=== PATIENT | male | born 1990 | race Two or more races ===

== ENCOUNTER 2016-08-23 02:33 | Emergency (ER) | payer MEDICAID, OTHER ==
[~2016-08-23] VITALS: Ht 177.8 cm; Wt 72.6 kg
[~2016-08-23 02:33] MED LIST: ARIP5TAB4 PO; GABA800T PO; SERT50TA PO
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
[2016-08-23 03:03] LABS: ABG BASE EXCESS 1.1 mmol/L; ABG OXYGEN SATURATION 87.6 % (92.0-98.5); ABG PCO2 42.2 mmHg (35.0-45.0); ABG PH 7.408 (7.350-7.450); COHb 2.7 % (0.5-1.5); MetHb 0.8 % (0.0-1.5); O2Hb 84.5 % (94.0-97.0); SITE, ABG A-Line; VENT MODE, BG room air
[2016-08-23 03:04] LABS: BASOPHILS # (AUTO) 0.1 /CMM (0.0-0.2); EOSINOPHILS # (AUTO) 0.3 /CMM (0.0-0.7); EOSINOPHILS % (AUTO) 4.8 % (0.0-6.0); HEMATOCRIT 43 % (39-51); HEMOGLOBIN 14.6 g/dL (13.5-17.5); LYMPHOCYTES # (AUTO) 2.6 /CMM (0.8-4.8); LYMPHOCYTES % (AUTO) 41.3 % (20.0-44.0); MEAN CORPUSCULAR HEMOGLOBIN 32 PG (26.0-33.0); MEAN CORPUSCULAR HGB CONC 35 g/dl (31.0-36.0); MEAN CORPUSCULAR VOLUME 92 fL (80-96); MONOCYTES # (AUTO) 0.8 /CMM (0.1-1.30); MONOCYTES % (AUTO) 11.9 % (2.0-12.0); NEUTROPHILS # (AUTO) 2.6 /CMM (1.8-8.9); PLATELET COUNT (AUTO) 256 /CMM (150-450); RDW COEFFICIENT OF VARIATION 12.4 (11.5-15.0); RED BLOOD CELL COUNT(AUTO) 4.61 MIL/uL (4.5-6.0); WHITE BLOOD COUNT (AUTO) 6.3 K/uL (4.3-11.0)
--- NOTE | 2016-08-23 03:10 | NUR ---
PT LEFT FOR CT VIA GURNEY.
[2016-08-23 03:16] LABS: CALCIUM, SERUM 9.2 mg/dL (8.5-10.1); CARBON DIOXIDE 27 mmol/L (21-32); CHLORIDE 108 mmol/L (98-107); CREATININE 0.7 mg/dL (0.6-1.3); GLUCOSE 97 mg/dL (74-106); POTASSIUM 3.2 mmol/L (3.5-5.1); SODIUM SERUM 142 mmol/L (136-145); UREA NITROGEN, BLOOD 13 mg/dL (7-18)
[2016-08-23 03:18] LABS: INR 1.01 (0.87-1.13); PROTHROMBIN TIME 10.8 SECS (9.5-12.7)
[2016-08-23 03:21] LABS: CREATINE KINASE, TOTAL 117 U/L (39-308)
[2016-08-23 03:22] LABS: ALANINE AMINOTRANSFERASE 27 U/L (12-78); ALCOHOL, BLOOD < 3 mg/dL (0-0); ALKALINE PHOSPHATASE 44 U/L (46-116); ASPARTATE AMINOTRANSFERASE 10 U/L (15-37); BILIRUBIN,DIRECT 0.2 mg/dL (0.0-0.2); BILIRUBIN,TOTAL 1.9 mg/dL (0.2-1.0); TOTAL PROTEIN, SERUM 6.7 g/dL (6.4-8.2)
[2016-08-23 03:24] LABS: TROPONIN I < 0.017 ng/mL (0.00-0.056)
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
--- NOTE | 2016-08-23 04:00 | NUR ---
DEATH CLAIM CLERK IS AT THE BEDSIDE. AMMONIA LEVEL DRAWN.
--- NOTE | 2016-08-23 04:39 | NUR ---
PT APPEARS TO BE SLEEPING COMFORTABLY WITH NO S/S OF PAIN OR DISTRESS.
[2016-08-23] MEDS ORDERED: FLAGYL/NS RTU 500 MG/100 ML PIGGYBACK IV ONE (05:00)
[2016-08-23] MEDS ORDERED: LACTULOSE 10 G/15 ML UDC (PYXIS) PO ONE (05:00)
[2016-08-23] MEDS ORDERED: NEOMYCIN SULFATE (500MG) 500 MG TABLET PO ONE (05:00)
[2016-08-23] MEDS ORDERED: METRONIDAZOLE 500MG/ NS 100ML 100 ML IV ONE (05:02)
[2016-08-23] MEDS ORDERED: IV SET PRIMARY PUMP SET 1 EA INFUS.SET MC ONE ×2 (05:02→06:00)
[2016-08-23 05:03] LABS: ACETAMINOPHEN 0 ug/ml (10-30)
[2016-08-23 05:04] LABS: VALPROIC ACID < 3 ug/mL (50-100)
[2016-08-23 05:06] LABS: APPEARANCE,URINE CLEAR (CLEAR); BILIRUBIN,URINE NEGATIVE (NEGATIVE); BLOOD, URINE 2+ Ery/uL (NEGATIVE); COLOR,URINE YELLOW (YELLOW); KETONES,URINE NEGATIVE (NEGATIVE); LEUKOCYTE ESTERASE ,URINE NEGATIVE (NEGATIVE); NITRITE, URINE NEGATIVE (NEGATIVE); PROTEIN,URINE TRACE mg/dl (NEGATIVE); UGLUCOSE NEGATIVE (NEGATIVE); UROBILINOGEN,URINE 0.2 EU/dL (0.2)
[2016-08-23 05:13] LABS: BACTERIA,URINE None seen /HPF (None Seen); MUCUS,URINE Rare /LPF (None Seen); SQUAMOUS EPITHELIAL CELL,UR Few /HPF (None Seen)
[2016-08-23] MEDS ORDERED: CT SWABBABLE VALVE TRANS SET 1 EA INFUS.SET MC ONE (05:13)
[2016-08-23] MEDS ORDERED: IOHEXOL-300 100 ML VIAL IV ONE (05:13)
[2016-08-23] MEDS ORDERED: IV NS 0.9% 250 ML IV ONE (05:13)
--- NOTE | 2016-08-23 05:15 | NUR ---
PT LEFT FOR CT VIA GURNEY.
--- NOTE | 2016-08-23 05:32 | NUR ---
PT RETURNED FROM CT.
--- NOTE | 2016-08-23 05:36 | NUR ---
PT NOT ABLE TO GIVE PO MEDS AT THIS TIME. PT IS TOO SOMULENT. DR. MEDRANO IS AWARE.
[2016-08-23] MEDS ORDERED: IV D5/0.45 NACL 1,000 ML IV ONE ×2 (05:59→06:00)
--- NOTE | 2016-08-23 06:23 | NUR ---
PT APPEARS TO BE SLEEPING SOUNDLY WITH NO S/S OF PAIN OR DISTRESS NOTED.
--- NOTE | 2016-08-23 07:01 | NUR ---
PT IS SLEEPING SOUNDLY. NO S/S OF PAIN OR DISTRESS NOTED. VSS.
--- NOTE | 2016-08-23 08:00 | NUR ---
PT GOT DRESSED AND WILL CALL SOMEONE TO PICK HIM UP.
--- NOTE | 2016-08-23 08:01 | NUR ---
IV removed. Catheter intact and site benign. Pressure and 4x4 applied to site. No bleeding noted.
--- NOTE | 2016-08-23 08:05 | NUR ---
PT AMBUALATED TO THE BATHROOM WITH A STEADY GAIT. VSS.
--- NOTE | 2016-08-23 08:05 | NUR ---
Patient discharged to home in stable condition. Written and verbal after care instructions given. Patient verbalizes understanding of instruction. PT TO CALL FAMILY/FRIEND TO PICK HIM UP.
[2016-08-23 08:07] VITALS: BP 111/69
[2016-08-23] MEDS ORDERED: ZINC SULFATE 220 MG CAPSULE PO SCH (09:00)
== END 2016-08-23 08:05 | disposition home or self-care (01) ==
LOC: ER 02:35
DX: R41.82 Altered mental status, unspecified (principal); F12.10 Cannabis abuse, uncomplicated; F15.10 Other stimulant abuse, uncomplicated; F41.9 Anxiety disorder, unspecified; R79.1 Abnormal coagulation profile; R79.89 Other specified abnormal findings of blood chemistry; Z88.2 Allergy status to sulfonamides; V49.9XXA Car occupant (driver) (passenger) injured in unspecified traffic accident, initial encounter; Y93.89 Activity, other specified; Y92.410 Unspecified street and highway as the place of occurrence of the external cause; Y99.9 Unspecified external cause status
CPT/HCPCS: 36415; 36600; 70450; 71010; 72125; 72170; 74160; 80048; 80076; 80164; 80305; 81001; 82140; 82550; 82962; 84484; 85025; 85730; 87081; 93005; 96365; 99285; A4606; G0480 ×2; J3490 ×2; J7050; L0172; Q9967; Z7610; 81000-TC

== ENCOUNTER 2016-09-21 11:56 | Inpatient (IN) | payer MEDICAID, OTHER ==
[~2016-09-21] VITALS: Ht 177.8 cm; Wt 70.3 kg
--- NOTE | 2016-09-21 02:00 | NUR ---
MS2/RN VANCOMYCIN NOT ADMINISTERED AT THIS TIME IT IS TOO CLOSE FROM LAST DOSE. WILL ADMIN AT 0500
--- NOTE | 2016-09-21 11:58 | NUR ---
PT TO ER BED 09. C/O LLE PAIN AND NUMBNESS R/T GROIN AREA SINCE WAKING UP THIS MORNING. PT ADMITS TO SHOOTING HEROIN BUT DENIES DOIN IT TO HIS LE. STATES UNABLE TO MOVE AFFECTED EXTREMITY. GOWNED AND PLACED ON MONITOR. AWAITING MD BAEZ.
--- NOTE | 2016-09-21 12:26 | NUR ---
LEILA SCRUBBER OPERATOR AT BEDSIDE FOR EVAL.
[2016-09-21] MEDS ORDERED: IV NS 0.9% 1,000 ML BAG IV ONE ×2 (12:30→14:30)
--- NOTE | 2016-09-21 12:35 | NUR ---
IV LINE STARTED. BLOOD DRAWN AND SENT TO LAB.
--- NOTE | 2016-09-21 12:37 | NUR ---
CALLED NURSING SUP. FOR MS BED
[2016-09-21] MEDS ORDERED: IV NS 0.9% 1,000 ML ONE (12:38)
[2016-09-21] MEDS ORDERED: IV SET PRIMARY PUMP SET 1 EA INFUS.SET MC ONE ×2 (12:38→19:24)
[2016-09-21 12:42] LABS: BASOPHILS # (AUTO) 0.1 /CMM (0.0-0.2); BASOPHILS % (AUTO) 0.9 % (0.0-2.0); EOSINOPHILS % (AUTO) 0.2 % (0.0-6.0); HEMATOCRIT 46 % (39-51); HEMOGLOBIN 15.3 g/dL (13.5-17.5); LYMPHOCYTES % (AUTO) 7.9 % (20.0-44.0); MEAN CORPUSCULAR HEMOGLOBIN 32 PG (26.0-33.0); MEAN CORPUSCULAR HGB CONC 34 g/dl (31.0-36.0); MEAN CORPUSCULAR VOLUME 95 fL (80-96); MONOCYTES # (AUTO) 1.6 /CMM (0.1-1.30); NEUTROPHILS # (AUTO) 10.4 /CMM (1.8-8.9); PLATELET COUNT (AUTO) 321 /CMM (150-450); RED BLOOD CELL COUNT(AUTO) 4.81 MIL/uL (4.5-6.0); WHITE BLOOD COUNT (AUTO) 13.1 K/uL (4.3-11.0)
[2016-09-21 12:53] LABS: CALCIUM, SERUM 8.9 mg/dL (8.5-10.1); CARBON DIOXIDE 29 mmol/L (21-32); CHLORIDE 102 mmol/L (98-107); CREATININE 0.9 mg/dL (0.6-1.3); GLUCOSE 138 mg/dL (74-106); POTASSIUM 3.6 mmol/L (3.5-5.1); SODIUM SERUM 139 mmol/L (136-145); UREA NITROGEN, BLOOD 7 mg/dL (7-18)
[2016-09-21 12:56] LABS: INR 0.99 (0.87-1.13); PROTHROMBIN TIME 10.3 SECS (9.5-12.7)
[2016-09-21 13:01] LABS: TROPONIN I < 0.017 ng/mL (0.00-0.056)
[2016-09-21 13:05] LABS: ALANINE AMINOTRANSFERASE 124 U/L (12-78); ALBUMIN 3.8 g/dL (3.4-5.0); ALKALINE PHOSPHATASE 46 U/L (46-116); ASPARTATE AMINOTRANSFERASE 319 U/L (15-37); B-TYPE NATRIURETIC PEPTIDE 63 PG/ML (0-125); BILIRUBIN,DIRECT 0.2 mg/dL (0.0-0.2); BILIRUBIN,TOTAL 0.8 mg/dL (0.2-1.0); TOTAL PROTEIN, SERUM 6.9 g/dL (6.4-8.2)
[2016-09-21] MEDS ORDERED: IOHEXOL-300 100 ML VIAL IV ONE (13:29)
[2016-09-21] MEDS ORDERED: IV NS 0.9% 250 ML IV ONE (13:29)
[2016-09-21] MEDS ORDERED: CT SWABBABLE VALVE TRANS SET 1 EA INFUS.SET MC ONE (13:29)
--- NOTE | 2016-09-21 13:35 | NUR ---
PT TO RADIOLOGY FOR ABDOMINAL/AORTA CT SCAN VIA RPORUM
[2016-09-21 14:17] LABS: APPEARANCE,URINE Clear (CLEAR); BILIRUBIN,URINE Negative (NEGATIVE); BLOOD, URINE Large Ery/uL (NEGATIVE); COLOR,URINE Dark Yellow (YELLOW); KETONES,URINE Negative (NEGATIVE); LEUKOCYTE ESTERASE ,URINE Negative (NEGATIVE); NITRITE, URINE Negative (NEGATIVE); PROTEIN,URINE 100 mg/dl (NEGATIVE); UGLUCOSE Negative (NEGATIVE); UROBILINOGEN,URINE 0.2 EU/dL (0.2)
[2016-09-21 14:24] LABS: BACTERIA,URINE None seen /HPF (None Seen); RBC,URINE 0-2 /HPF (0-2); SQUAMOUS EPITHELIAL CELL,UR Few /HPF (None Seen); URINE AMORPHOUS URATE Moderate /HPF (None Seen); WBC,URINE 0-3 /HPF (0-3)
[2016-09-21 14:34] LABS: CREATINE KINASE MB 174.9 ng/mL (0-3.6)
--- NOTE | 2016-09-21 14:34 | NUR ---
[facility] PAGED, DR. MORTENSEN CAR INSPECTION AND REPAIR MANAGER
[2016-09-21] MEDS ORDERED: IV SET PRIMARY 1 EA INFUS.SET MC ONE (15:31)
[2016-09-21] MEDS ORDERED: IV NS 0.9% 2,000 ML ONE (15:31)
[2016-09-21] MEDS ORDERED: IV NS 0.9% 1,000 ML IV PRN (16:41)
[2016-09-21] MEDS ORDERED: MAGNESIUM HYDROXIDE 30 ML UDC PO PRN (17:00)
[2016-09-21] MEDS ORDERED: MAG HYDROX/AL HYDROX/SIMETH 30 ML UDC PO PRN (17:00)
[2016-09-21] MEDS ORDERED: ONDANSETRON HCL/PF 4 MG/2 ML VIAL IVP PRN (17:00)
[2016-09-21] MEDS: ARIPIPRAZOLE 5 MG TABLET PO SCH (17:00)
[2016-09-21] MEDS: SERTRALINE HCL 50 MG TABLET PO SCH (17:00)
[2016-09-21] MEDS ORDERED: MORPHINE SULFATE INJ 2 MG/ML DISP.SYRIN IV PRN (17:00)
[2016-09-21] MEDS ORDERED: Z GUARD REMEDY 2 OZ OINT TP PRN (17:00)
[2016-09-21] MEDS ORDERED: ACETAMINOPHEN 325 MG TABLET PO PRN (17:00)
[2016-09-21] MEDS ORDERED: ENOXAPARIN SODIUM 40 MG/0.4 ML DISP.SYRIN SQ SCH (17:00)
[2016-09-21] MEDS ORDERED: TOPI-37 PO (17:04)
[2016-09-21] MEDS ORDERED: FOLI1TAB16 PO (17:04)
[2016-09-21] MEDS ORDERED: PANT20TA2 PO (17:04)
[2016-09-21] MEDS ORDERED: GABA-534 PO (17:04)
[2016-09-21] MEDS ORDERED: FEE PK DOSING 1 MIN EA MC ONE (17:11)
--- NOTE | 2016-09-21 17:20 | NUR ---
REPORT GIVEN TO LYNDA. PT AWAITING TRANSFER TO FLOOR.
[2016-09-21 17:59] VITALS: BP 150/83
--- NOTE | 2016-09-21 18:30 | NUR ---
RN ADMITTING NOTES RECEIVED REPORT FROM ER. PATIENT ARRIVED TO UNIT AT 1815. NO SIGNS AND SYMPTOMS OF DISTRESS. VITAL SIGNS ARE STABLE. IV SITE IN INTACT AND PATENT. BED IN LOW POSITION, LOCKED AND TWO SIDE RAILS ARE UP. WILL CONTINUE TO MONITOR AND ASSESS PATIENT. WILL ENDORSE TO GOLD BURNISHER NURSE.
[2016-09-21] MEDS ORDERED: SECONDARY IV SET 1 EA INFUS.SET MC ONE (19:24)
--- NOTE | 2016-09-21 19:30 | NUR ---
MS2/RN RECEIVE PATIENT AWAKE, ALERT, ORIENTED, COMFORTABLE, NO SIGNS OF DISTRESS NOTED, PLAN OF CARE DISCUSSED, VERBALIZED UNDERSTANDING AND AGREEMENT, CALL LIGHT IN REACH. WILL MONITOR.
[2016-09-21] MEDS: CEFTRIAXONE 1 G in IV D5W 50 ML IV SCH (19:31)
[2016-09-21] MEDS: IV NS 0.9% 1,000 ML IV PRN (19:32)
[2016-09-21 19:50] VITALS: BP 130/71
[2016-09-21] MEDS: PANTOPRAZOLE 40 MG TABLET.DR PO SCH (20:20)
[2016-09-21] MEDS: ENOXAPARIN SODIUM 80 MG/0.8 ML DISP.SYRIN SQ SCH (20:21)
[2016-09-21] MEDS: VANCOMYCIN 1.5 GM in IV D5W 500 ML IV SCH (21:11)
[2016-09-21] MEDS: GABAPENTIN 400 MG CAPSULE PO SCH (22:50)
[2016-09-21] MEDS ORDERED: MORPHINE SULFATE INJ 4 MG/ML DISP.SYRIN IV PRN (23:15)
[2016-09-21] MEDS ORDERED: MORPHINE SULFATE INJ 4 MG/ML DISP.SYRIN ONE (23:17)
--- NOTE | 2016-09-21 23:20 | NUR ---
MS2/RN PATIENT IS SLEEPING, AROUSABLE, APPEAR COMFORTABLE, NO SIGNS OF DISTRESS NOTED. CALL LIGHT IN REACH. WILL GIVE PAIN MED WHEN PATIENT WAKES UP.
[2016-09-22] MEDS: VANCOMYCIN 1.5 GM in IV D5W 500 ML IV SCH ×4 (02:00→21:37)
[2016-09-22] MEDS: MORPHINE SULFATE INJ 4 MG/ML DISP.SYRIN IV PRN ×4 (02:16→17:46)
[2016-09-22] MEDS: IV NS 0.9% 1,000 ML IV PRN (04:57)
[2016-09-22 06:40] LABS: BASOPHILS # (AUTO) 0.1 /CMM (0.0-0.2); BASOPHILS % (AUTO) 0.6 % (0.0-2.0); EOSINOPHILS # (AUTO) 0.2 /CMM (0.0-0.7); EOSINOPHILS % (AUTO) 2.2 % (0.0-6.0); HEMATOCRIT 43 % (39-51); HEMOGLOBIN 14.8 g/dL (13.5-17.5); LYMPHOCYTES # (AUTO) 1.9 /CMM (0.8-4.8); LYMPHOCYTES % (AUTO) 16.9 % (20.0-44.0); MEAN CORPUSCULAR HEMOGLOBIN 32 PG (26.0-33.0); MEAN CORPUSCULAR HGB CONC 35 g/dl (31.0-36.0); MEAN CORPUSCULAR VOLUME 93 fL (80-96); MONOCYTES # (AUTO) 1.6 /CMM (0.1-1.30); MONOCYTES % (AUTO) 14.5 % (2.0-12.0); NEUTROPHILS # (AUTO) 7.3 /CMM (1.8-8.9); NEUTROPHILS % (AUTO) 65.8 % (43.0-81.0); PLATELET COUNT (AUTO) 282 /CMM (150-450); RDW COEFFICIENT OF VARIATION 13.1 (11.5-15.0); RED BLOOD CELL COUNT(AUTO) 4.56 MIL/uL (4.5-6.0); WHITE BLOOD COUNT (AUTO) 11.2 K/uL (4.3-11.0)
--- NOTE | 2016-09-22 07:06 | NUR ---
MS2/RN PATIENT STILL SLEEPING AT THIS TIME, AROUSABLE, APPEAR COMFORTABLE, NO SIGNS OF DISTRESS NOTED, CALL LIGHT IN REACH. ALL NEEDS ATTENDED AT THIS TIME. WILL CONTINUE TO MONITOR.
[2016-09-22 07:22] LABS: ALBUMIN 2.6 g/dL (3.4-5.0); BILIRUBIN,TOTAL 0.9 mg/dL (0.2-1.0); CALCIUM, SERUM 8.2 mg/dL (8.5-10.1); CREATININE 0.5 mg/dL (0.6-1.3); MAGNESIUM 1.8 mg/dL (1.8-2.4); PHOSPHORUS 3.8 mg/dL (2.5-4.9); POTASSIUM 3.7 mmol/L (3.5-5.1); TOTAL PROTEIN, SERUM 5.4 g/dL (6.4-8.2)
--- NOTE | 2016-09-22 07:44 | NUR ---
MS RN OPENING NOTE PATIENT IS ALERT AND ORIENTED 4. NO PAIN AT THIS TIME. NO SOB OR DISTRESS NOTED. CALL LIGHT WITHIN REACH. SAFETY MEASURES IMPLEMENTED. IV INTACT AND PATENT NO REDNESS OR SWELLING NOTED. ABLE TO COMMUNICATE NEEDS. IV FLUIDS RUNNING. BEDREST DUE TO UNABLE TO WALK ON FOOT FROM CELLULITIS. WILL CONTINUE TO MONITOR
[2016-09-22 08:00] VITALS: BP 145/71
[2016-09-22] MEDS: ARIPIPRAZOLE 5 MG TABLET PO SCH ×3 (08:21→16:08)
[2016-09-22] MEDS: SERTRALINE HCL 50 MG TABLET PO SCH ×2 (08:21→08:28)
[2016-09-22] MEDS: PANTOPRAZOLE 40 MG TABLET.DR PO SCH (08:21)
[2016-09-22 08:36] LABS: EOSINOPHILS % (MANUAL) 2 % (0-4); LYMPHOCYTES % (MANUAL) 13 % (16-48); MONOCYTES % (MANUAL) 6 % (0-11.0); NEUTROPHILS % (MANUAL) 79 (42-76)
[2016-09-22] MEDS: ENOXAPARIN SODIUM 80 MG/0.8 ML DISP.SYRIN SQ SCH (08:56)
[2016-09-22 09:05] LABS: THYROID STIMULATING HORMONE 0.261 uIU/mL (0.358-3.74)
--- NOTE | 2016-09-22 09:59 | NUR ---
MS RN NOTE NOTIFIED PHARMACY ABOUT VANCOMYCIN GIVEN AT 5 AM. PHARMACY TO CHANGE SCHEDULED TIME
[2016-09-22 16:00] VITALS: BP 135/73
[2016-09-22] MEDS ORDERED: IV SET PRIMARY PUMP SET 1 EA INFUS.SET MC ONE (17:44)
[2016-09-22] MEDS: CEFTRIAXONE 1 G in IV D5W 50 ML IV SCH (17:45)
--- NOTE | 2016-09-22 18:34 | NUR ---
MS RN CLOSING NOTE PATIENT IS ALERT AND ORIENTED x4. NO PAIN AT THIS TIME. NO SOB OR DISTRESS NOTED. CALL LIGHT WITHIN REACH AT ALL TIMES. SAFETY MEASURES IMPLEMENTED. IV INTACT AND PATENT NO REDNESS OR SWELLING NOTED, IV FLUIDS RUNNING AT THIS TIME. INFORMED MD ABOUT MED RECONCILIATION. AWAITING CONSULT WITH DR. MONDRAGON. ABLE TO COMMUNICATE NEEDS. WILL ENDORSE TO STEEL BUFFER NURSE
--- NOTE | 2016-09-22 19:30 | NUR ---
MS2/RN RECEIVE PATIENT AWAKE, ALERT, ORIENTED, COMFORTABLE, NO C/O PAIN, NO SIGNS OF DISTRESS NOTED, CALL LIGHT IN REACH. WILL MONITOR.
[2016-09-22 20:00] VITALS: BP 140/82
--- NOTE | 2016-09-22 21:00 | NUR ---
MS2/RN UNABLE TO ADMINISTER DUE MEDS AT THIS TIME. PATIENT IS SLEEPING.
[2016-09-23] MEDS: IV NS 0.9% 1,000 ML IV PRN ×3 (00:03→22:25)
[2016-09-23] MEDS: GABAPENTIN 400 MG CAPSULE PO SCH (00:07)
[2016-09-23] MEDS: ENOXAPARIN SODIUM 80 MG/0.8 ML DISP.SYRIN SQ SCH (00:09)
[2016-09-23] MEDS: MORPHINE SULFATE INJ 4 MG/ML DISP.SYRIN IV PRN ×5 (00:15→23:11)
[2016-09-23] MEDS: ZOLPIDEM TARTRATE 5 MG TABLET PO PRN (02:36)
[2016-09-23] MEDS: VANCOMYCIN 1.5 GM in IV D5W 500 ML IV SCH ×3 (05:27→22:18)
[2016-09-23 06:52] LABS: CALCIUM, SERUM 8.3 mg/dL (8.5-10.1); CREATININE 0.6 mg/dL (0.6-1.3); POTASSIUM 3.8 mmol/L (3.5-5.1)
--- NOTE | 2016-09-23 07:48 | NUR ---
MS RN OPENING NOTE PATIENT IS ALERT AND ORIENTED x4. NO PAIN AT THIS TIME. NO SOB OR DISTRESS NOTED. CALL LIGHT WITHIN REACH. SAFETY MEASURES IMPLEMENTED. IV INTACT AND PATENT NO REDNESS OR SWELLING, IV FLUIDS RUNNING AT THIS TIME. ABLE TO COMMUNICATE NEEDS. SEEN BY DR. SWENSON, PER MD TO RECOMMEND PHYSICAL THERAPY. WILL CONTINUE TO MONITOR
[2016-09-23 08:00] VITALS: BP 121/68
[2016-09-23] MEDS: PANTOPRAZOLE 40 MG TABLET.DR PO SCH (08:31)
[2016-09-23] MEDS: SERTRALINE HCL 50 MG TABLET PO SCH (08:33)
[2016-09-23] MEDS: ARIPIPRAZOLE 5 MG TABLET PO SCH (08:33)
[2016-09-23 08:48] LABS: ALBUMIN 2.4 g/dL (3.4-5.0); BILIRUBIN,DIRECT 0.1 mg/dL (0.0-0.2); BILIRUBIN,TOTAL 0.7 mg/dL (0.2-1.0); TOTAL PROTEIN, SERUM 5.5 g/dL (6.4-8.2)
[2016-09-23] MEDS ORDERED: GABAPENTIN 300 MG CAPSULE PO SCH (09:00)
[2016-09-23] MEDS: FOLIC ACID 1 MG TABLET PO SCH (09:25)
[2016-09-23] MEDS: TOPIRAMATE 100 MG TABLET PO SCH ×2 (09:26→18:00)
[2016-09-23] MEDS: ENOXAPARIN SODIUM 40 MG/0.4 ML DISP.SYRIN SQ SCH (09:28)
[2016-09-23 09:40] LABS: CREATINE KINASE MB 3.7 ng/mL (0-3.6)
[2016-09-23] MEDS: GABAPENTIN 300 MG CAPSULE PO SCH ×2 (13:24→18:00)
[2016-09-23 16:00] VITALS: BP 122/68
--- NOTE | 2016-09-23 16:17 | NUR ---
MS RN NOTE PATIENT NOTIFIED ME THAT HE WAS BECOMING ANXIOUS FROM NOT SMOKING. NOTIFIED DR. MORTENSEN, NEW ORDER FOR NICOTINE PATCH, ORDERS NOTED AND CARRIED OUT.
[2016-09-23] MEDS: NICOTINE PATCH (21MG) 21 MG PATCH.TD24 TD SCH (18:00)
[2016-09-23] MEDS: LACTOBACILLUS RHAMNOSUS GG 1 EACH CAP.SPRINK PO SCH (18:10)
[2016-09-23] MEDS: CEFTRIAXONE 1 G in IV D5W 50 ML IV SCH (18:18)
--- NOTE | 2016-09-23 18:53 | NUR ---
MS RN CLOSING NOTE PATIENT IS ALERT AND ORIENTED x4. NO PAIN AT THIS TIME. NO SOB OR DISTRESS NOTED. CALL LIGHT WITHIN REACH AT ALL TIMES. SAFETY MEASURES IMPLEMENTED. ALL DUE MEDICATIONS GIVEN ORDERED. IV INTACT AND PATENT NO REDNESS OR SWELLING NOTED. WILL ENDORSE TO CONCRETE BATCHING PLANT OPERATOR NURSE.
--- NOTE | 2016-09-23 19:40 | NUR ---
MSRN ASLEEP, EASILY AROUSABLE WHEN CALLED. PAIN TOLERABLE FOR NOW ON HIS LEFT LEG. PRESENT IVF INFUSING WELL. NO NEEDS MADE
[2016-09-23 20:00] VITALS: BP 111/65
--- NOTE | 2016-09-23 22:10 | NUR ---
MSRN DUE MEDS ADMINISTERED. SNACKS PROVIDED.
--- NOTE | 2016-09-23 23:15 | NUR ---
MSRN AWAKENED, INCREASING PAIN ON LEFT LEG. MORPHINE GIVEN. BEDREST FOR NOW.
--- NOTE | 2016-09-23 23:15 | NUR ---
MSRN PAIN ON LEFT FOOT LEVEL 7/10, MORPHINE 1MG IVP ADMINISTERED ORDERED. BEDREST INSTRUCTED.
[2016-09-24] MEDS ORDERED: SECONDARY IV SET 1 EA INFUS.SET MC ONE (00:28)
[2016-09-24] MEDS: ZOLPIDEM TARTRATE 5 MG TABLET PO PRN (00:33)
--- NOTE | 2016-09-24 00:35 | NUR ---
MSRN UNABLE TO GO BACK TO SLEEP, AMBIEN 5MG PO GIVEN. PROVIDED QUIET ENVIRONMENT. CLOSELY WATCHED
[2016-09-24] MEDS ORDERED: IV SET PRIMARY PUMP SET 1 EA INFUS.SET MC ONE (00:51)
--- NOTE | 2016-09-24 02:58 | NUR ---
MSRN SLEEPING, MONITORED.
[2016-09-24] MEDS: VANCOMYCIN 1.5 GM in IV D5W 500 ML IV SCH ×3 (05:26→21:05)
[2016-09-24] MEDS: MORPHINE SULFATE INJ 4 MG/ML DISP.SYRIN IV PRN ×5 (05:27→22:24)
--- NOTE | 2016-09-24 05:36 | NUR ---
MSRN INCREASING LEFT LEG PAIN 09/20. 1MG OF MORPHINE GIVEN. LABS DRAWN.
[2016-09-24 06:44] LABS: BASOPHILS # (AUTO) 0.1 /CMM (0.0-0.2); BASOPHILS % (AUTO) 0.9 % (0.0-2.0); EOSINOPHILS # (AUTO) 0.8 /CMM (0.0-0.7); EOSINOPHILS % (AUTO) 11.1 % (0.0-6.0); HEMATOCRIT 43 % (39-51); HEMOGLOBIN 14.6 g/dL (13.5-17.5); LYMPHOCYTES # (AUTO) 1.5 /CMM (0.8-4.8); LYMPHOCYTES % (AUTO) 20.9 % (20.0-44.0); MEAN CORPUSCULAR HEMOGLOBIN 32 PG (26.0-33.0); MEAN CORPUSCULAR HGB CONC 34 g/dl (31.0-36.0); MEAN CORPUSCULAR VOLUME 94 fL (80-96); MONOCYTES # (AUTO) 0.8 /CMM (0.1-1.30); MONOCYTES % (AUTO) 10.9 % (2.0-12.0); NEUTROPHILS % (AUTO) 56.2 % (43.0-81.0); PLATELET COUNT (AUTO) 256 /CMM (150-450); RDW COEFFICIENT OF VARIATION 13.1 (11.5-15.0); RED BLOOD CELL COUNT(AUTO) 4.55 MIL/uL (4.5-6.0); WHITE BLOOD COUNT (AUTO) 7.1 K/uL (4.3-11.0)
--- NOTE | 2016-09-24 06:56 | NUR ---
MSRN RESTING QUIETLY. NO NEEDS MADE.
[2016-09-24 07:28] LABS: ALBUMIN 2.7 g/dL (3.4-5.0); BILIRUBIN,DIRECT 0.1 mg/dL (0.0-0.2); BILIRUBIN,TOTAL 0.8 mg/dL (0.2-1.0); CALCIUM, SERUM 8.6 mg/dL (8.5-10.1); CREATININE 0.6 mg/dL (0.6-1.3); POTASSIUM 3.7 mmol/L (3.5-5.1)
--- NOTE | 2016-09-24 07:42 | NUR ---
AM RN NOTE Received patient sleeping comfortably in his bed, no acute distress noted. No SOB noted resp even and non-labored. IV site intact and patent. Bed in low locked position. Will continue to monitor. Call light with in reach.
[2016-09-24 08:00] VITALS: BP 128/74
[2016-09-24] MEDS: LACTOBACILLUS RHAMNOSUS GG 1 EACH CAP.SPRINK PO SCH ×2 (08:56→16:48)
[2016-09-24] MEDS: FOLIC ACID 1 MG TABLET PO SCH (08:57)
[2016-09-24] MEDS: PANTOPRAZOLE 40 MG TABLET.DR PO SCH (08:57)
[2016-09-24] MEDS: GABAPENTIN 300 MG CAPSULE PO SCH ×3 (08:57→16:48)
[2016-09-24] MEDS: TOPIRAMATE 100 MG TABLET PO SCH ×2 (08:57→16:48)
[2016-09-24] MEDS: NICOTINE PATCH (21MG) 21 MG PATCH.TD24 TD SCH (08:58)
[2016-09-24] MEDS: ENOXAPARIN SODIUM 40 MG/0.4 ML DISP.SYRIN SQ SCH (08:58)
--- NOTE | 2016-09-24 11:37 | NUR ---
Social service consult requested by Dr. Benavides for possible homelessness. Pt. is a 25 year old young man who was admitted to [facility] for Rhabdomyolysis. INGRID met with pt. bedside. Pt. is alert and oriented x 4. Pt. was sitting in a chair when SW met with him. Pt. informed SW that he was residing in a sober living in [place] but relapsed two months ago and had to leave the facility. 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 Pt. states he started using drugs at the age of 18. For the past two months pt. has been using heroin and cocaine daily. Pt. has been to several treatment programs in the past such as [facility] and [facility]. Pt. informed SW that he is going to go directly to [facility] upon discharge. He requested for INGRID to contact Nils to arrange sending clinicals etc. Pt. states he has family support from his sister Troy who resides in [facility] and another sister who resides in [place]. INGRID contacted Nils at [facility] who informed INGRID to fax clinicals to him. INGRID faxed clinicals to Nils at .
--- NOTE | 2016-09-24 14:31 | NUR ---
INGRID received a call from Admission coordinator Geraldine from [facility] informing INGRID that pt. can be discharged to their facility tomorrow, however will need transportation via taxi. Admissions Coordiantor Geraldine should be contacted prior to sending pt. to the facility. Pt. to be discharged to [facility] located at [address] [place] [address]. [place] [id number]. INGRID informed piano case and bench assembler Iram regarding discharge plan.
[2016-09-24 16:00] VITALS: BP 122/70
[2016-09-24] MEDS: IV NS 0.9% 1,000 ML IV PRN (16:49)
[2016-09-24] MEDS: CEFTRIAXONE 1 G in IV D5W 50 ML IV SCH (17:04)
[2016-09-24 17:08] LABS: CREATINE KINASE MB 1.5 ng/mL (0-3.6)
--- NOTE | 2016-09-24 17:10 | NUR ---
per Geraldine at [facility] [phone] they cannot accept patient due to patient ambulation status requiring a walker. Will have PT reeval patient as well as do stairs training. electrical lineworker, caser shoe parts discussed with patient other options. He will make decision base on the result of the PT reeval. Addendum: 09/24/16 at 2035 by LYNN LOPEZ RN Amended: Links added.
--- NOTE | 2016-09-24 18:09 | NUR ---
AM RN NOTE Patient lying in his bed, all needs met and attended in timely manner. IV site intact and patent. Will endorse care to next shift.
--- NOTE | 2016-09-24 19:20 | NUR ---
MS RN NOTE RECEIVED PATIENT FROM DAY SHIFT, PATIENT IS ALERT AND ORIENTEDX3, NO S/S OF RESPIRATORY DISTRESS OR PAIN AT THIS TIME. IV ON LEFT WRIST IS PATENT AND INTACT, NS IS RUNNING. PATIENT IS ABLE TO WALK WITH ASSIST. WILL BE DISCHARGED TOMORROW, PATIENT MADE AWARE. SRX2, BED IN LOW POSITION, CALL LIGHT WITHIN REACH, WILL CONTINUE TO MONITOR PATIENT.
[2016-09-24 20:00] VITALS: BP 134/74
--- NOTE | 2016-09-24 20:00 | NUR ---
received a call from patient mother Jennifer Ann [phone] concerned about patient placement as he was not accepted to [facility]. Jennifer was advised that we will work on finding appropriate placement for the patient. I Had a long talked with Geraldine at the [facility],she stated that the reason why they can't take the is because he is still on IV pain meds and requires a walker and supervision with ambulation. Per Geraldine- pt is still high level for their program. Patient has to be ambulatory without assistive device and independent with adl's. Patient should be off the IV pain meds also. Geraldine recommended detox for few days then patient can go to recovery program after. Referred to Santos - director at [facility] program at [facility] [phone]. Zach - yvon from [facility] will assess patient tonight. Addendum: 09/24/16 at 2056 by LYNN LOPEZ RN Amended: Links added.
--- NOTE | 2016-09-24 22:27 | NUR ---
MS RN NOTE PATIENT COMPLAINS OF PAIN ON LEFT LEG 09/20, MORPHINE 1MG IVP GIVEN. WILL MONITOR FOR EFFECTIVENESS.
[2016-09-25] MEDS: IV NS 0.9% 1,000 ML IV PRN ×2 (02:38→16:33)
[2016-09-25] MEDS: MORPHINE SULFATE INJ 4 MG/ML DISP.SYRIN IV PRN ×4 (03:55→21:24)
[2016-09-25] MEDS: VANCOMYCIN 1.5 GM in IV D5W 500 ML IV SCH ×2 (05:00→05:01)
--- NOTE | 2016-09-25 05:10 | NUR ---
MS MURPHY NOTE 0500 IV LEODAN SCANNED AND HELD UNTIL THE LAB RESULT COMES SINCE IT WAS NOT DONE AT 0400. NOTIFIED THE LAB AND THEY SAID THEY WILL DO IT SOON. Addendum: 09/25/16 at 0601 by JOEY LASSITER RN VANCO TROUGH RESULT CAME OUT, AND IT WAS 21. WILL UNDO ADMINISTRATION ON [email or web address].
[2016-09-25 05:53] LABS: CALCIUM, SERUM 8.3 mg/dL (8.5-10.1); CREATININE 0.7 mg/dL (0.6-1.3); POTASSIUM 3.9 mmol/L (3.5-5.1)
--- NOTE | 2016-09-25 06:37 | NUR ---
MS RN NOTE PATIENT IS SLEEPING IN BED COMFORTABLY, NO ACUTE EVENT NOTED DURING THE MANAGER TESTING. NO S/S OF RESPIRATORY DISTRESS OR PAIN AT THIS TIME. WILL ENDORSE TO DAY SHIFT NURSE FOR SINDY.
--- NOTE | 2016-09-25 07:18 | NUR ---
AM RN NOTE Received patient sleeping comfortably in his bed, no acute distress noted. Resp even and non-labored. IV site intact and patent. Bed in low locked position. Will continue to monitor. Call light with in reach.
[2016-09-25 08:00] VITALS: BP 119/66
[2016-09-25] MEDS: NICOTINE PATCH (21MG) 21 MG PATCH.TD24 TD SCH (08:11)
[2016-09-25] MEDS: TOPIRAMATE 100 MG TABLET PO SCH ×2 (08:11→16:33)
[2016-09-25] MEDS: LACTOBACILLUS RHAMNOSUS GG 1 EACH CAP.SPRINK PO SCH ×2 (08:11→16:33)
[2016-09-25] MEDS: GABAPENTIN 300 MG CAPSULE PO SCH ×3 (08:11→16:33)
[2016-09-25] MEDS: FOLIC ACID 1 MG TABLET PO SCH (08:11)
[2016-09-25] MEDS: PANTOPRAZOLE 40 MG TABLET.DR PO SCH (08:11)
[2016-09-25] MEDS: ENOXAPARIN SODIUM 40 MG/0.4 ML DISP.SYRIN SQ SCH (08:19)
[2016-09-25] MEDS: VANCOMYCIN 1 GM in IV D5W 250 ML IV SCH ×2 (12:10→21:25)
[2016-09-25 16:00] VITALS: BP 115/70
[2016-09-25] MEDS: CEFTRIAXONE 1 G in IV D5W 50 ML IV SCH (17:04)
--- NOTE | 2016-09-25 18:09 | NUR ---
AM RN NOTE Patient lying in his bed, no acute distress noted. IV site intact and patent and continue on IV hydration as ordered. Will endorse care to next shift.
--- NOTE | 2016-09-25 18:32 | NUR ---
AM RN NOTE Pt ambulated independently in hallway approximately 50 feet as supervised by staff at this time.
--- NOTE | 2016-09-25 19:30 | NUR ---
RN NOTES: RECEIVED AWAKE SITTING ON THE BED SIDE CHAIR, ALERT AND COHERENT,NO SIGN OF SOB, NO COMPLAINTS OF PAIN UPON ENDORSEMENT, FALL,SAFETY,AND ASPIRATION PRECAUTION OBSERVE, CALL LIGHT WITHIN REACH.
[2016-09-25 20:00] VITALS: BP 132/75
--- NOTE | 2016-09-25 21:25 | NUR ---
RN NOTES: PATIENT COMPLAINED OF GENERALIZED PAIN 10/10,NON PHARMACOLOGIC INTERVENTION RENDERED, HE REQUEST FOR HIS PAIN MEDICATION,BP-132/75, WY-84, MORPHINE 1MG GIVEN PER PATIENT REQUEST, KEPT IN COMFORTABLE POSITION, CALL LIGHT WITHIN EASY REACH.
[2016-09-25] MEDS: ZOLPIDEM TARTRATE 5 MG TABLET PO PRN (23:10)
--- NOTE | 2016-09-25 23:11 | NUR ---
RN NOTES: PATIENT COULD NOT SLEEP,REQUEST FOR HIS SLEEPING PILL, GIVEN AT 2310.CALL LIGHT WITHIN EASY REACH.
[2016-09-26] MEDS: IV NS 0.9% 1,000 ML IV PRN ×2 (04:08→21:34)
[2016-09-26] MEDS: VANCOMYCIN 1 GM in IV D5W 250 ML IV SCH ×2 (04:09→13:40)
--- NOTE | 2016-09-26 04:29 | NUR ---
RN NOTES: ASLEEP IN THE NIGHT,NO COMPLAINTS OF PAIN,IVF FINISHED, NEW BAG OF N/S STARTED AT 0409 AT 150CC/HR VIA INFUSSION PUMP.CALLS AND NEEDS ATTENDED.
--- NOTE | 2016-09-26 06:39 | NUR ---
RN NOTES: ASLEEP IN THE NIGHT, KEPT COMFORTABLE IN BED,NO COMPLAINTS OF DISCOMFORT,CALL LIGHT WITHIN EASY REACH,ENDORSED TO NEXT SHIFT FOR CONTINUITY OF CARE.
--- NOTE | 2016-09-26 07:29 | NUR ---
AM RN NOTE Received patient sleeping comfortably in his bed, no acute distress noted. Resp even and non-labored. IV site intact and patent and continue on IV hydrations. Bed in low locked position. Will continue to monitor. Call light with in reach.
[2016-09-26 07:45] LABS: CALCIUM, SERUM 8.5 mg/dL (8.5-10.1); CREATININE 0.6 mg/dL (0.6-1.3); POTASSIUM 3.8 mmol/L (3.5-5.1)
[2016-09-26 08:00] VITALS: BP 110/61
[2016-09-26] MEDS: GABAPENTIN 300 MG CAPSULE PO SCH ×3 (08:41→16:08)
[2016-09-26] MEDS: LACTOBACILLUS RHAMNOSUS GG 1 EACH CAP.SPRINK PO SCH ×2 (08:41→16:08)
[2016-09-26] MEDS: FOLIC ACID 1 MG TABLET PO SCH (08:41)
[2016-09-26] MEDS: TOPIRAMATE 100 MG TABLET PO SCH ×2 (08:42→16:08)
[2016-09-26] MEDS: PANTOPRAZOLE 40 MG TABLET.DR PO SCH (08:42)
[2016-09-26] MEDS: NICOTINE PATCH (21MG) 21 MG PATCH.TD24 TD SCH (08:42)
[2016-09-26] MEDS: ENOXAPARIN SODIUM 40 MG/0.4 ML DISP.SYRIN SQ SCH (08:48)
[2016-09-26] MEDS: MORPHINE SULFATE INJ 4 MG/ML DISP.SYRIN IV PRN (09:33)
[2016-09-26 17:22] VITALS: BP 107/69
[2016-09-26] MEDS: CEFTRIAXONE 1 G in IV D5W 50 ML IV SCH (17:32)
--- NOTE | 2016-09-26 18:18 | NUR ---
AM RN NOTE Patient awake, eating dinner at this time. No acute distress noted. All needs met and attended in timely manner. Will endorse care to next shift.
--- NOTE | 2016-09-26 19:30 | NUR ---
RN OPENING NOTES RECEIVED REPORT FROM TAMIEFT RNROXANNA. FOUND Pt AWAKE IN BED. NO S/S OF ACUTE DISTRESS OR SOB NOTED. Pt IS A/OX4, VERBAL, ABLE TO MAKE NEEDS KNOWN. MOTHER VISITING AT BEDSIDE. IV ACCESS ON L WRIST #22G, NS @150ML/HR. SAFETY MEASURES IN PLACE. BED LOW, LOCKED, HOB ELEVATED, SIDE RAILS UP, CALL LIGHT AND BEDSIDE TABLE WITHIN REACH. WILL CONTINUE TO MONITOR Pt THROUGHOUT THE NIGHT FOR SAFETY.
[2016-09-26 20:00] VITALS: BP 126/70
--- NOTE | 2016-09-26 20:00 | NUR ---
RN NOTES Pt REQUESTED IF HE CAN SHOWER TONIGHT. Pt IS AMBULATORY. CALLED HARRY BRANDT TO GET SHOWER ORDER, GAVE THE OK FOR THE SHOWER.
[2016-09-26] MEDS: VANCOMYCIN 1.25 GM in IV D5W 500 ML IV SCH (21:32)
[2016-09-26] MEDS: MORPHINE SULFATE INJ 2 MG/ML DISP.SYRIN IV PRN (21:34)
[2016-09-27] MEDS: MORPHINE SULFATE INJ 2 MG/ML DISP.SYRIN IV PRN ×3 (03:46→15:09)
[2016-09-27] MEDS: VANCOMYCIN 1.25 GM in IV D5W 500 ML IV SCH ×2 (04:59→12:23)
--- NOTE | 2016-09-27 06:45 | NUR ---
RN CLOSING NOTES NO SIGNIFICANT CHANGES IN Pt's CONDITION. NO S/S OF ACUTE DISTRESS OR SOB NOTED. ALL NEEDS MET AND ATTENDED TO. SAFETY MEASURES IN PLACE. WILL ENDORSE TO DAYSHIFT RN FOR Pt's SINDY.
[2016-09-27 07:18] LABS: CALCIUM, SERUM 8.5 mg/dL (8.5-10.1); CREATININE 0.6 mg/dL (0.6-1.3)
--- NOTE | 2016-09-27 07:40 | NUR ---
MS RN NOTES Received patient awake in bed in no acute signs of distress. A/O x 4, no c/o pain or discomforts at this time. on room air, respiration even and non-labored. IV site on left wrist intact and patent with IVF of NS at 150ml infusing well, no s/s of infiltration noted. Bed in low and locked position. Call light within reach. will maintain all safet measurse and will continue to monitor pt accordingly.
[2016-09-27 08:00] VITALS: BP 116/68
[2016-09-27] MEDS: LACTOBACILLUS RHAMNOSUS GG 1 EACH CAP.SPRINK PO SCH ×2 (08:23→16:49)
[2016-09-27] MEDS: NICOTINE PATCH (21MG) 21 MG PATCH.TD24 TD SCH (08:23)
[2016-09-27] MEDS: GABAPENTIN 300 MG CAPSULE PO SCH ×3 (08:23→16:49)
[2016-09-27] MEDS: PANTOPRAZOLE 40 MG TABLET.DR PO SCH (08:23)
[2016-09-27] MEDS: FOLIC ACID 1 MG TABLET PO SCH (08:23)
[2016-09-27] MEDS: TOPIRAMATE 100 MG TABLET PO SCH ×2 (08:24→16:49)
[2016-09-27] MEDS: ENOXAPARIN SODIUM 40 MG/0.4 ML DISP.SYRIN SQ SCH (08:24)
[2016-09-27] MEDS ORDERED: IV SET PRIMARY PUMP SET 1 EA INFUS.SET MC ONE (10:21)
--- NOTE | 2016-09-27 14:50 | NUR ---
RN NOTES DISPENSING OPTICIAN CALLED AND SAID THAT THERE'S NO AVAILABLE ROOM AT [facility] TODAY. HE WILL PROBABLY BE DISCHARGED TOMORROW.
[2016-09-27 16:00] VITALS: BP 114/75
[2016-09-27] MEDS: CEFTRIAXONE 1 G in IV D5W 50 ML IV SCH (17:00)
--- NOTE | 2016-09-27 18:21 | NUR ---
OPERATING ENGINEER NOTES PATIENT DISCHARGE TO [facility]. HE LEFT UNIT AT 1805H AMBULATORY IN STABLE CONDITION VIA WHEELCHAIR AND TOOK UBER TO GO FIRST TO HIS NEPHEW MERISSA BAEZ'S PLACE IN [address] [place] [address] TO CARBIDE OPERATOR HIS BELONGINGS THEN HE WILL BE PICKED-UP BY [facility] AT [address] AT [place] [id number] [place] [id number]. PT ALERT AND ORIENTED 4, NO COMPLAINTS VOICED DURING DISCHARGE. SKIN IS INTACT. BELONGINGS CHECKED, COUNTED AND SIGNED FORM. V/S CHECKED AND WNL. NURSING CHAR PULLER AND MD AWARE OF PT'S DISCHARGE.
== END 2016-09-27 18:05 | DRG 603 ==
LOC: ER 11:59 → MEDSG2 15:17
PROVIDERS: ADMIT Internal Medicine; ATTEND Internal Medicine
DX: L03.116 Cellulitis of left lower limb (principal); M62.82 Rhabdomyolysis; R74.0 Nonspecific elevation of levels of transaminase and lactic acid dehydrogenase [LDH]; F14.10 Cocaine abuse, uncomplicated; F11.10 Opioid abuse, uncomplicated; G62.9 Polyneuropathy, unspecified; R20.9 Unspecified disturbances of skin sensation
CPT/HCPCS: 36415; 70551-TC; 71010-TC; 72141-TC; 72148-TC; 80048-TC; 80053-TC; 80061-TC; 80074; 80076-TC; 80202-TC; 81000-TC; 82550-TC; 82553-TC; 83605-TC; 83735-TC; 83880; 84100-TC; 84439-TC; 84443-TC; 84484-TC; 85025-TC; 85652-TC; 85730-TC; 86140-TC; 87040-TC; 87081-TC; 87340; 93971-TC; 97001-TC; 97110-TC; 97116-TC; 97530-TC; A4606; J0696; J1650; J2270; J3370; J7030; J7050; J7060; Q9967; Z7610

== ENCOUNTER 2017-12-20 17:40 | Emergency (ER) | payer OTHER, MEDICAID ==
[~2017-12-20] VITALS: Ht 177.8 cm; Wt 71.7 kg
[~2017-12-20 17:40] MED LIST changes: -ARIP5TAB4 PO; +FOLI1TAB16 PO; +GABA-534 PO; -GABA800T PO; +PANT20TA2 PO; -SERT50TA PO; +TOPI100T38 PO
--- NOTE | 2017-12-20 17:40 | NUR ---
BIB FAMILY,ACTING BIZARRE, ADMIT TO USING METH. VSS NO ACUTE DISTRESS NOTED AT THIS TIME. PT IS ALERT AND ORIENTED X2/3 BUT UNKEPT AND DISTRACTED. FAMILY AT BEDSIDE. WILL CONTINUE TO MONITOR FOR ANY CHANGES DURING THE SHIFT.
--- NOTE | 2017-12-20 17:41 | NUR ---
ER EDWARD MOON AT BEDSIDE
[2017-12-20] MEDS ORDERED: LORAZEPAM INJ 2 MG/ML VIAL IVP ONE (19:30)
[2017-12-20] MEDS ORDERED: IV NS 0.9% 1,000 ML BAG IV ONE (19:30)
[2017-12-20] MEDS ORDERED: OLANZAPINE 5 MG TABLET PO ONE (19:30)
[2017-12-20] MEDS ORDERED: OLANZAPINE 5 MG TABLET ONE (19:45)
[2017-12-20] MEDS ORDERED: LORAZEPAM INJ 2 MG/ML VIAL ONE (19:46)
[2017-12-20 19:51] LABS: BASOPHILS % (AUTO) 0.6 % (0.0-2.0); EOSINOPHILS % (AUTO) 0.9 % (0.0-6.0); HEMATOCRIT 37 % (39-51); HEMOGLOBIN 14.9 g/dL (13.5-17.5); LYMPHOCYTES # (AUTO) 1.6 /CMM (0.8-4.8); LYMPHOCYTES % (AUTO) 30.9 % (20.0-44.0); MEAN CORPUSCULAR HGB CONC 41 g/dl (31.0-36.0); MEAN CORPUSCULAR VOLUME 91 fL (80-96); MONOCYTES # (AUTO) 0.6 /CMM (0.1-1.30); NEUTROPHILS # (AUTO) 2.9 /CMM (1.8-8.9); NEUTROPHILS % (AUTO) 55.6 % (43.0-81.0); PLATELET COUNT (AUTO) 185 /CMM (150-450); RDW COEFFICIENT OF VARIATION 11.2 (11.5-15.0); RED BLOOD CELL COUNT(AUTO) 4.04 MIL/uL (4.5-6.0); WHITE BLOOD COUNT (AUTO) 5.1 K/uL (4.3-11.0)
[2017-12-20 20:00] LABS: CALCIUM, SERUM 9.8 mg/dL (8.5-10.1); CARBON DIOXIDE 23 mmol/L (21-32); CHLORIDE 107 mmol/L (98-107); CREATININE 0.8 mg/dL (0.6-1.3); GLUCOSE 104 mg/dL (74-106); POTASSIUM 3.5 mmol/L (3.5-5.1); SODIUM SERUM 141 mmol/L (136-145); UREA NITROGEN, BLOOD 11 mg/dL (7-18)
[2017-12-20 20:05] LABS: ALANINE AMINOTRANSFERASE 32 U/L (12-78); ALBUMIN 4.6 g/dL (3.4-5.0); ALCOHOL, BLOOD < 3 mg/dL (0-0); ALKALINE PHOSPHATASE 46 U/L (46-116); ASPARTATE AMINOTRANSFERASE 23 U/L (15-37); BILIRUBIN,DIRECT 0.2 mg/dL (0.0-0.2); BILIRUBIN,TOTAL 0.9 mg/dL (0.2-1.0); TOTAL PROTEIN, SERUM 7.8 g/dL (6.4-8.2)
[2017-12-20 20:06] LABS: ACETAMINOPHEN < 2 ug/ml (10-30); SALICYLATE < 2.8 mg/dL (2.8-20.0)
--- NOTE | 2017-12-20 20:43 | NUR ---
PSYCH PRODUCT CONTROLLER MADE AWARE OF PATIENT. WILL BE SEEN SHORTLY
[2017-12-20 23:02] LABS: APPEARANCE,URINE CLEAR (CLEAR); BILIRUBIN,URINE NEGATIVE (NEGATIVE); BLOOD, URINE NEGATIVE Ery/uL (NEGATIVE); COLOR,URINE YELLOW (YELLOW); KETONES,URINE NEGATIVE (NEGATIVE); LEUKOCYTE ESTERASE ,URINE NEGATIVE (NEGATIVE); NITRITE, URINE NEGATIVE (NEGATIVE); PROTEIN,URINE NEGATIVE (NEGATIVE); UGLUCOSE NEGATIVE (NEGATIVE); UROBILINOGEN,URINE 0.2 EU/dL (0.2)
--- NOTE | 2017-12-21 | NUR ---
MIKE AT BEDSIDE FOR PSYCH EVAL
[2017-12-21 02:01] VITALS: BP 124/81
--- NOTE | 2017-12-21 02:26 | NUR ---
[facility] REP STATED "OUR SYSTEMS ARE DOWN AND WILL NOT BE ABLE TO REGISTER HIM UNTIL 429"
== END 2017-12-21 03:17 ==
LOC: ER 17:40
DX: F20.9 Schizophrenia, unspecified (principal); F15.10 Other stimulant abuse, uncomplicated; F41.9 Anxiety disorder, unspecified; Z88.2 Allergy status to sulfonamides; Z79.899 Other long term (current) drug therapy
CPT/HCPCS: 36415; 80048; 80076; 80305; 80329; 81001; 85025; 93005; 96374; 99285; A4606; G0480 ×2; J2060; J7030; Z7610; 81000-TC

== ENCOUNTER 2018-05-02 21:43 | Emergency (ER) | payer MEDICAID, OTHER ==
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
== END 2018-05-02 23:05 | disposition left against medical advice (07) ==
LOC: ER 21:43
DX: Z53.21 Procedure and treatment not carried out due to patient leaving prior to being seen by health care provider (principal)

== ENCOUNTER 2022-04-27 20:03 | Emergency (ER) | payer BC, MEDICAID ==
[~2022-04-27] VITALS: Ht 177.8 cm; Wt 102.1 kg
--- NOTE | 2022-04-27 20:29 | NUR ---
TO ER BED 11. BIBS C/O BILATERAL LOWER LEG SWELLING, DISCOMFORT AND NUMBNESS X 2 DAYS. PT DENIES ANY TRAUMA. PT IS ALERT AND ORIENTED. RR EVEN AND NON LABORED. CONNECTED TO MONITOR.
--- NOTE | 2022-04-27 20:52 | NUR ---
LAB AT BEDSIDE
[2022-04-27 21:32] LABS: BASOPHILS # (AUTO) 0.1 K/uL (0.0-0.2); BASOPHILS % (AUTO) 0.9 % (0.0-2.0); EOSINOPHILS % (AUTO) 6.1 % (0.0-6.0); HEMATOCRIT 46 % (39-51); HEMOGLOBIN 15.4 g/dL (13.5-17.5); LYMPHOCYTES # (AUTO) 2.3 K/uL (0.8-4.8); LYMPHOCYTES % (AUTO) 37.3 % (20.0-44.0); MEAN CORPUSCULAR HGB CONC 34 g/dl (31.0-36.0); MEAN CORPUSCULAR VOLUME 94 fL (80-96); MONOCYTES # (AUTO) 0.7 K/uL (0.1-1.30); NEUTROPHILS # (AUTO) 2.8 K/uL (1.8-8.9); NEUTROPHILS % (AUTO) 44.7 % (43.0-81.0); PLATELET COUNT (AUTO) 256 K/uL (150-450); RED BLOOD CELL COUNT(AUTO) 4.87 MIL/uL (4.5-6.0); WHITE BLOOD COUNT (AUTO) 6.2 K/uL (4.3-11.0)
[2022-04-27 21:47] LABS: CALCIUM, SERUM 9.2 mg/dL (8.5-10.1); CARBON DIOXIDE 27 mmol/L (21-32); CHLORIDE 106 mmol/L (98-107); CREATININE 1.2 mg/dL (0.6-1.3); GLUCOSE 94 mg/dL (74-106); POTASSIUM 3.6 mmol/L (3.5-5.1); SODIUM SERUM 142 mmol/L (136-145); UREA NITROGEN, BLOOD 21 mg/dL (7-18)
[2022-04-27 21:59] LABS: ALANINE AMINOTRANSFERASE 41 U/L (12-78); ALBUMIN 4.1 g/dL (3.4-5.0); ALKALINE PHOSPHATASE 47 U/L (46-116); ASPARTATE AMINOTRANSFERASE 20 U/L (15-37); BILIRUBIN,DIRECT 0.1 mg/dL (0.0-0.2); BILIRUBIN,TOTAL 0.4 mg/dL (0.2-1.0); TOTAL PROTEIN, SERUM 7.1 g/dL (6.4-8.2)
[2022-04-27] MEDS ORDERED: FURO-145 PO (23:13)
--- NOTE | 2022-04-27 23:28 | NUR ---
Patient discharged to home in stable condition. Written and verbal after care instructions given. Patient verbalizes understanding of instruction.
[2022-04-27 23:49] VITALS: BP 131/78
== END 2022-04-27 23:50 | disposition home or self-care (01) ==
LOC: ER 20:08
DX: R60.0 Localized edema (principal); F41.9 Anxiety disorder, unspecified; Z88.2 Allergy status to sulfonamides; Z79.899 Other long term (current) drug therapy
CPT/HCPCS: 36415; 71045-TC; 80048-TC; 80076-TC; 82550-TC; 83880; 84484-TC; 85025-TC

== ENCOUNTER 2024-02-05 12:10 | Emergency (ER) | payer BC ==
[~2024-02-05] VITALS: Ht 177.8 cm; Wt 117.9 kg
[~2024-02-05 12:10] MED LIST changes: +FURO-145 PO
[2024-02-05 13:23] LABS: EOSINOPHILS # (AUTO) 0.2 K/uL (0.0-0.7); EOSINOPHILS % (AUTO) 5.2 % (0.0-6.0); HEMATOCRIT 48 % (39-51); HEMOGLOBIN 16.5 g/dL (13.5-17.5); LYMPHOCYTES # (AUTO) 1.9 K/uL (0.8-4.8); LYMPHOCYTES % (AUTO) 43.3 % (20.0-44.0); MEAN CORPUSCULAR HEMOGLOBIN 31 PG (26.0-33.0); MEAN CORPUSCULAR HGB CONC 34 g/dl (31.0-36.0); MEAN CORPUSCULAR VOLUME 91 fL (80-96); MONOCYTES # (AUTO) 0.5 K/uL (0.1-1.30); MONOCYTES % (AUTO) 11.1 % (2.0-12.0); NEUTROPHILS # (AUTO) 1.8 K/uL (1.8-8.9); NEUTROPHILS % (AUTO) 39.4 % (43.0-81.0); PLATELET COUNT (AUTO) 211 K/uL (150-450); RED BLOOD CELL COUNT(AUTO) 5.28 MIL/uL (4.5-6.0); RED CELL DISTRIBUTION WIDTH 13.3 % (11.5-15.0); WHITE BLOOD COUNT (AUTO) 4.5 K/uL (4.3-11.0)
[2024-02-05 13:33] LABS: ALBUMIN 4.2 g/dL (3.4-5.0); BILIRUBIN,DIRECT 0.2 mg/dL (0.0-0.2); BILIRUBIN,TOTAL 1.3 mg/dL (0.2-1.0); CALCIUM, SERUM 9.1 mg/dL (8.5-10.1); CREATININE 0.7 mg/dL (0.6-1.3); POTASSIUM 3.9 mmol/L (3.5-5.1); TOTAL PROTEIN, SERUM 7.3 g/dL (6.4-8.2)
[2024-02-05 14:01] LABS: APPEARANCE,URINE CLEAR (CLEAR); BILIRUBIN,URINE NEGATIVE (NEGATIVE); BLOOD, URINE TRACE-INTA Ery/uL (NEGATIVE); COLOR,URINE YELLOW (YELLOW); KETONES,URINE NEGATIVE (NEGATIVE); LEUKOCYTE ESTERASE ,URINE NEGATIVE (NEGATIVE); NITRITE, URINE NEGATIVE (NEGATIVE); PROTEIN,URINE NEGATIVE (NEGATIVE); UGLUCOSE NEGATIVE (NEGATIVE); UROBILINOGEN,URINE 0.2 EU/dL (0.2)
[2024-02-05 14:17] LABS: ADD URINE CULTURE NO; BACTERIA,URINE Few /HPF (None Seen); MUCUS,URINE Few /LPF (None Seen); SQUAMOUS EPITHELIAL CELL,UR 0-2 /HPF (None Seen); WBC,URINE 0-2 /HPF (0-3)
[2024-02-05] MEDS ORDERED: FAMO-131 PO (14:55)
[2024-02-05 14:59] VITALS: BP 129/79; TEMP 98.2; O2SAT 99
== END 2024-02-05 15:00 | disposition home or self-care (01) ==
LOC: ER 12:10
DX: R10.10 Upper abdominal pain, unspecified (principal); F15.10 Other stimulant abuse, uncomplicated; F41.9 Anxiety disorder, unspecified; Z79.899 Other long term (current) drug therapy; Z88.2 Allergy status to sulfonamides
CPT/HCPCS: 36415; 76705-TC; 80048-TC; 80076-TC; 81001; 83690-TC; 85025-TC